=== PATIENT | male | born 1985 | race Caucasian/White ===

== ENCOUNTER → 2022-03-30 14:47 | Outpatient (CLI) | payer OTHER, SELFPAY | PROVIDERS: PCP Family Medicine; Visit Provider Nurse Practitioner | DX: R06.00 Dyspnea, unspecified (principal); R42 Dizziness and giddiness; R55 Syncope and collapse; I34.0 Nonrheumatic mitral (valve) insufficiency; I49.3 Ventricular premature depolarization; Z98.890 Other specified postprocedural states | CPT/HCPCS: 93270 ==

== ENCOUNTER 2022-04-02 15:05 | Emergency (ER) | payer OTHER, SELFPAY ==
[2022-04-02 15:10] VITALS: BP 130/78; PULSE 71; RESP 18; TEMP 36.8; O2SAT 98; BMI 25.7
[2022-04-02 15:20] VITALS: BP 130/78; PULSE 71; RESP 18; TEMP 36.8; O2SAT 98; BMI 25.7
--- NOTE | 2022-04-02 15:48 | HMH.EDUTC ---
[facility] [place] Impression: Low back pain Qualifiers: Chronicity: unspecified Back pain laterality: midline Sciatica presence: without sciatica Qualified Code(s): M54.50 - Low back pain, unspecified Disposition: Home, Self-Care Condition on Discharge: Good Instructions: Low Back Pain, DI for Low Back Pain, Cyclobenzaprine Additional Instructions: *Naproxen jeromy 12 hours with meal as needed for pain/inflammation *Remember you had a Toradol shot in the clinic today, which is similar to Naproxen so do not take for the next 8-10 hours *Not additional anti-inflammatory like Ibuprofen motrin, aleve, advil with the above amount of Naproxen. You can still take Tylenol every 4 hours as needed if you need something else for pain *Ice 20 minutes every 2 hours for the first 48 hours after the initial injury followed by moist heat every 20 minutes 3-4 times a day to affected area *Muscle relaxer every 8 hours as needed for muscle spasms but remember, it WILL cause drowsiness You cannot take it and drive, operate machinery or care for small children. *Keep this area active, no movement leads to more stiffness, However take it easy and avoid heavy lifting pushing or pulling *Follow up with you family doctor if no improvement for further treatment Prescriptions: Cyclobenzaprine HCl [Flexeril 10mg tablet] 10 mg PO TID PRN 30 Days #90 tab PRN Reason: Muscle Spasm Transmission Status: Pending to Clinic Pharmacy [facility] Referrals: Kashif Melton MD [Primary Care Provider] - As needed Time of Disposition: 16:17 Medical Decision Making - [place] Inquiry Pt receiving controlled substance: No [place] was queried for this patient: No Vital Signs: 04/02/22 15:10 04/02/22 15:20 Temperature 98.2 F 98.2 F Temperature Source Oral Oral Pulse Rate [Right Brachial] 71 71 Respiratory Rate 18 18 Blood Pressure [Right Arm] 130/78 130/78 Blood Pressure Mean [Right Arm] 95 95 Blood Pressure Source [Right Arm] Automatic Cuff Automatic Cuff Blood Pressure Position [Right Arm] Sitting Sitting 02 Sat by Pulse Oximetry 98 98 Oxygen Delivery Method Room Air Room Air Medical Decision Narrative: Medications discussed with pharmacy [facility] [place] - General Stated complaint: Back Spasms Time Seen by Provider: 04/02/22 15:48 Mode of Arrival: Ambulatory Source of Information: Patient, Spouse Limitations: No Limitations Description of Symptoms (Recalled from Triage Doc. 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 HEENT Symptoms (Recalled from RN notes): No Resp Symptoms (Recalled from RN notes): No Skin Symptoms (Recalled from RN notes): No MS Symptoms (Recalled from RN notes): Yes Functional Status (Recalled from RN notes): wnl - History of Present Illness Provider Complaint: Patient states he has had back problems in the past States that he was bending over to flush the toilet and felt something in his back spasm up States that he has been having spasms in his lower back ever since States that he tried a tens unit but it made it worse States that he hasnt been able to bend due to the spasms Denies falling States that he is suppose to take Naproxen but hasnt taken it today Denies loss of control of bowel or bladder - Related Data Home Medications Medication Instructions Recorded Confirmed Lactobacillus cap PO 03/30/22 03/30/22 no.51-Bifidobacterium no.4 50 billion cell capsule ascorbic acid 30 mg-zinc 1.1 tab PO 03/30/22 03/30/22 mg-elderberry 25 mg chewable tablet aspirin 81 mg tablet,delayed 81 mg PO DAILY 03/30/22 03/30/22 release cetirizine 10 mg tablet 10 mg PO DAILY PRN 03/30/22 03/30/22 flecainide 100 mg tablet 100 mg PO ONCE tab 03/30/22 03/30/22 guaifenesin 1,200 mg tablet, 1,200 mg PO BID 03/30/22 03/30/22 extended release 12 hr lansoprazole 30 mg capsule,delayed 30 mg PO DAILY cap 03/30/22 03/30/22 release metoprolol succinate 50 mg 50 mg PO BID tab 0
[2022-04-02 16:02] VITALS: BP 130/78; PULSE 71; RESP 18; TEMP 36.8; O2SAT 98
== END 2022-04-02 16:16 | disposition home or self-care (01) ==
PROVIDERS: Emergency Provider Nurse Practitioner; PCP Family Medicine
DX: M54.50 Low back pain, unspecified (principal)
CPT/HCPCS: 96372; 99212; G0463

== ENCOUNTER → 2022-04-06 06:17 | Outpatient (CLI) | payer OTHER, SELFPAY ==
--- NOTE | 2022-04-06 | CA_ITS ---
APPROVED REPORT Exam: Exercise Treadmill Technologist: Poppy Amezcua, Ht: 6 ft 1 in Wt: 242 lbs BSA: 2.33 m2 HR: 63 bpm BP: 142/97 mmHg Medical History Medications: Aspirin,,,,, Metoprolol,,,,, Flecainide,,,,, Naproxen,,,,, Lansoprazole,,,,, Zolpidem,,,,, MuCINEX,,,,, CetIRIZINE,,,,, ValACYCLOVer,,,,, NUrtec,,,,, ProDIOTICS,,,,, MultivitaminS,,,,, Stress Test Details Test: Javon HR Resting HR: 67 bpm Max Heart Rate (APMHR): 182.073902 bpm Max HR Achieved: 156 bpm Target HR (85% APMHR): 154.134148 bpm % of APMHR: 85.71 Recovery HR: 98 bpm BP Resting BP: 142/97 mmHg Max BP: 193/109 mmHg Recovery BP: 145.0/95.0 mmHg ECG Resting ECG: NSR, slow R wave progression Clinical Exercise duration: 12:00 min Highest Stage Achieved: IV Exercise capacity: 12.8 METs Stress ECG Conclusion Exercised 12:00 on Javon protocol, completing 4 stages. Max HR: 156 % of PM: 86% Max BP: 193/109 METs: 12.8 Test stopped due to: SOA, Fatigue Symptoms: Dyspnea, No CP. Arrhythmias/Ectopy: Occ isolated PVCs. ST-T Changes: Normal ST response to exercise. Conclusion: Normal GXT. Myoview images reported separately. Test Summary REST . . . . . . . Sitting REST 05:01 0.0 0.0 67 . 142/ 97 . . Stage 1 01:00 10.0 1.7 72 . . . . Stage 1 02:00 10.0 1.7 80 . . . . Stage 1 03:00 10.0 1.7 80 . . . . Stage 2 01:00 12.0 2.5 85 . . . . Stage 2 02:00 12.0 2.5 89 . . . . Stage 2 03:00 12.0 2.5 91 . . . . Stage 3 01:00 14.0 3.4 101 . 130/ 76 . . Stage 3 02:00 14.0 3.4 106 . 130/ 76 . . Stage 3 03:00 14.0 3.4 110 . 140/ 80 . . Stage 4 01:00 16.0 4.2 123 . . . . Stage 4 02:00 16.0 4.2 139 . . . . Stage 4 03:00 16.0 4.2 154 . . . Stop exercise at 12:00 RECOVERY 01:00 0.0 0.0 141 . . . . RECOVERY 02:00 0.0 0.0 117 . 193/109 . . RECOVERY 03:00 0.0 0.0 109 . 193/109 . . RECOVERY 04:00 0.0 0.0 103 . 178/ 97 . . RECOVERY 05:00 0.0 0.0 99 . 145/ 95 . . RECOVERY 05:17 0.0 0.0 97 . 145/ 95 . . Electronically signed by : Fabrice Pedroza MD 04/06/2022 20:45:27
--- NOTE | 2022-04-06 06:27 | NM_ITS ---
APPROVED REPORT Exam: Nuclear Stress Test Indication: palpitations..fatigue Patient Location: Outpatient Stress Tech: Poppy Amezcua MT Tech:Rosalba Montes De OcaLAKEISHA RT(R)(N) Ht: 6 ft 1 in Wt: 237 lbs HR: 67 bpm BP: 142/97 mmHg BSA: 2.31 m2 TID: 0.81 BMI: 31.2 History: palpitations..fatigue Procedure: Patient exercised on Javon protocol 12 minutes and sec, resting heart rate 67 bpm, resting blood pressure 142/97 mmHg, with exercise maximum heart rate achived was 156 bpm which is 86 % of the maximum predicted heart rate and blood pressure was 193/109 mmHg. Patient denied any complaint of chest pain. Patient has good exercise capacity, achieved 12.8 METs of workload on treadmill, the blood pressure response to exercise was Adequate. Electrocardiogram Electrocardiogram shows sinus rhythm, with exercise there is less than 1.[address] segment depression noted from the baseline EKG. The EKG portion of the exercise Myoview is negative for ischemia. Cardiac Stress and Resting SPECT Images: Cardiac Stress and Resting SPECT images were obtained using technetium 99m Myoview 30.6 mCi stress and 10.25 mCi at rest. Gated SPECT analysis of segmental wall motion and calculation of the ejection fraction also done. Cardiac stress and rest SPECT images show uniform myocardial activity without segmental perfusion abnormality, computer derived ejection fraction is 60% with no regional wall motion abnormality, right ventricle is normal size and contractility. Conclusion: 1. The EKG portion of the exercise Myoview is negative for ischemia. Patient has adequate exercise capacity achieved 12.8 METs of workload on treadmill, the blood pressure response to exercise was adequate. 2. No scintigraphic evidence of reversible ischemia seen, compared to ejection fraction is 60% with no regional wall motion abnormality, right ventricle is normal size and contractility. 3. Normal exercise Myoview study. Electronically signed by : Fabrice Pedroza MD 04/06/2022 20:48:30
--- NOTE | 2022-04-06 07:05 | CA_ITS ---
APPROVED REPORT EXAM: Comprehensive 2D, Doppler, and color-flow Echocardiogram Air Traffic Control Supervisor: Glenys Chavez RT(R) Ht: 6 ft 1 in Wt: 242lbs BSA: 2.33 BP: 113/82 mmHg Indications: fatigue, HTN, SOB, dizziness, MV repair 11/2019, PVC's, CHF, GERD, hx of migraines post MV surgery. 2D Dimensions LVOT 2.28 cm (M/F) 1.5-2.5 LA Volume 40.60 mL LA Volume Index 17.42 mL/m2 (M/F) 16-34 M-Mode Dimensions RVDd 2.46 cm (0.9-2.6) LA Diam 4.17 cm (1.9-4.0) LVDd 5.40 cm (3.5-5.7) Ao Diam 2.94 cm (2.0-3.7) LVDs 4.21 cm (3.5-5.7) IVSd 0.93 cm (0.6-1.1) PWd 0.93 cm (0.6-1.1) EF (Teich) 44.10% FS 22.00% EDV (Teich) 141.30 mL TAPSE 2.06 (<1.7) ESV (Teich) 79.00 mL LV Diastology E Decel Time 177.00 (160-240 msec) E/A Ratio 1.1 MED E' 10.80 (< 7 cm/sec) E'/MED E' Ratio 10.23 (>14) LAT E' 9.20 (<10 cm/sec) E/LAT E' Ratio 12.01 (>14) Aortic Valve AO VTI 62.50 (18-25 cm) Mitral Valve MV E Max Monty. 110.00 (40-130 cm/s) MV A Velocity 97.00 (40-130 cm/s) E/A Ratio 1.14 MV Decel. Time 177.00 (160-240 ms) MV PHT 52.00 ms Left Ventricle Left atrium is normal size, left ventricle is normal size, there is no concentric left ventricular hypertrophy, estimated ejection fraction 55% with no regional wall motion abnormality. Right Ventricle Right atrium and right ventricle are normal size and contractility. Aortic Valve Aortic valve is grossly normal, there is no aortic stenosis or aortic insufficiency. Mitral Valve Mitral valve has mitral annular ring, the mitral inflow pattern is not suggestive of significant mitral inflow obstruction, there is no mitral regurgitation. Tricuspid Valve Tricuspid valve grossly normal, there is trace tricuspid regurgitation, tricuspid regurgitation jet velocity is inadequate for calculation of the right ventricular systolic pressure. Pulmonic Valve Pulmonic valve is poorly visualized. Great Vessels Aortic root is normal size. Inferior vena cava normal size with normal inspiratory collapse. Pericardium No significant pericardial effusion noted. Conclusion 1. Normal left ventricular size, preserved left ventricular systolic function, estimated ejection fraction 55% with no regional wall motion abnormality, diastolic parameters are inconclusive. 2. Status post mitral valve repair without significant mitral inflow obstruction or mitral regurgitation. 3. No significant pericardial effusion. 4. Inferior vena cava normal size with normal inspiratory collapse. Electronically signed by : Fabrice Pedroza MD 04/06/2022 21:10:26
[2022-04-06 10:11] LABS: Basophils # 0.1 K/mm3 (0-0.2); Basophils % 1.8 % (0.1-2.0); Eosinophils # 0.1 K/mm3 (0.0-0.4); Eosinophils % 1.6 % (0.1-12.0); Hematocrit 45.7 % (42.0-52.0); Hemoglobin 15.5 g/dL (14.1-18.0); Lymphocytes # 1.4 K/mm3 (0.7-4.5); Lymphocytes % 25.9 % (10-50); Mean Corpuscular Hemoglobin 31.1 pg (27.0-31.2); Mean Corpuscular Volume 91.5 fl (80-94); Mean Platelet Volume 7.7 fl (7.4-10.4); Monocytes # 0.4 K/mm3 (0.1-1.0); Monocytes % 7.8 % (1.7-9.3); Neutrophils # 3.3 K/mm3 (1.8-7.8); Neutrophils % 62.9 % (37.0-80.0); Platelet Count 260 K/mm3 (142-424); Red Cell Distribution Width 13.3 % (11.5-17.5); White Blood Count 5.2 K/mm3 (4.8-10.8)
[2022-04-06 10:36] LABS: Alanine Aminotransferase 28 U/L (12-78); Alkaline Phosphatase 53 U/L (38-126); Anion Gap 11.6 mEq/L (5-15); Aspartate Amino Transferase 29 U/L (17-59); Bilirubin,Indirect 0.2 mg/dL (0.0-0.9); Bilirubin,Total 0.2 mg/dl (0.2-1.3); Bilirubin,Unconjugated 0.6 mg/dL (0.0-1.1); Blood Urea Nitrogen 16 mg/dl (9-20); Calcium 9.7 mg/dl (8.4-10.2); Carbon Dioxide 30 mmol/L (22.0-30.0); Chloride 100 mmol/L (98-107); Chol/HDL Ratio 4.9 (1-3.5); Cholesterol 188 mg/dl (140-200); Estimated Glomerular Filt Rate 84 ml/min (>60); GFR (African American) 101 ML/MIN (>60); Glucose 94 mg/dl (74-100); HDL Cholesterol 38 mg/dl (40-60); Magnesium 1.6 mg/dl (1.6-2.3); Potassium 4.6 mmoL/L (3.5-5.1); Sodium 137 mmol/L (136-145); Total Protein,Serum 6.7 g/dl (6.3-8.2); Triglycerides 115 mg/dl (30-150); VLDL Cholesterol 23 mg/dL (0-40)
[2022-04-06 10:47] LABS: Direct LDL Cholesterol 127.01 mg/dL (100-129)
[2022-04-06 10:52] LABS: Free T4 (Free Thyroxine) 0.97 ng/dl (0.78-2.19)
[2022-04-06 11:07] LABS: Thyroid Stimulating Hormone 2.61 uIU/mL (0.465-4.68)
== END ==
PROVIDERS: PCP Family Medicine; Visit Provider Nurse Practitioner
DX: R06.00 Dyspnea, unspecified (principal); R42 Dizziness and giddiness; I34.0 Nonrheumatic mitral (valve) insufficiency; I49.3 Ventricular premature depolarization; R55 Syncope and collapse; Z98.890 Other specified postprocedural states; M54.50 Low back pain, unspecified
CPT/HCPCS: 36415; 78452; 80048; 80061; 80076; 83735; 84439; 84443; 85025; 93017; 93306; A9502

== ENCOUNTER → 2022-09-13 13:32 | Outpatient (CLI) | payer OTHER, SELFPAY | PROVIDERS: PCP Family Medicine; Visit Provider Family Medicine | DX: G47.33 Obstructive sleep apnea (adult) (pediatric) (principal); R06.83 Snoring; I10 Essential (primary) hypertension; E66.9 Obesity, unspecified; Z68.31 Body mass index [BMI] 31.0-31.9, adult | CPT/HCPCS: 95806 ==

== ENCOUNTER → 2023-07-06 14:54 | Outpatient (CLI) | payer OTHER, SELFPAY | LOC: SL 14:55 | PROVIDERS: PCP Family Medicine; Visit Provider Family Medicine | DX: G47.33 Obstructive sleep apnea (adult) (pediatric) (principal); R06.83 Snoring | CPT/HCPCS: 95806 ==

== ENCOUNTER → 2023-07-20 08:48 | Outpatient (CLI) | payer OTHER, SELFPAY ==
--- NOTE | 2023-07-20 08:51 | CA_ITS ---
APPROVED REPORT EXAM: Comprehensive 2D, Doppler, and color-flow Echocardiogram Public Speaking Teacher: Glenys Chavez RT(R) Ht: 6 ft 2 in Wt: 246lbs BSA: 2.37 BP: 130/80 mmHg Indications: SOA, CP, abn EKG, hx of MV repair(ring), ex smoker, palpitations, HTN. 2D Dimensions LVOT 2.46 cm (M/F) 1.5-2.5 LA Volume 49.40 mL LA Volume Index 20.76 mL/m2 (M/F) 16-34 M-Mode Dimensions RVDd 3.27 cm (0.9-2.6) LA Diam 3.66 cm (1.9-4.0) LVDd 5.34 cm (3.5-5.7) Ao Diam 3.41 cm (2.0-3.7) LVDs 3.99 cm (3.5-5.7) IVSd 1.06 cm (0.6-1.1) PWd 0.89 cm (0.6-1.1) EF (Teich) 49.50% FS 25.30% EDV (Teich) 137.70 mL ESV (Teich) 69.60 mL LV Diastology E Decel Time 237.00 (160-240 msec) E/A Ratio 1.3 MED E' 9.20 (< 7 cm/sec) E'/MED E' Ratio 12.10 (>14) LAT E' 10.20 (<10 cm/sec) E/LAT E' Ratio 10.91 (>14) Aortic Valve AO VTI 40.28 (18-25 cm) Mitral Valve MV E Max Monty. 111.00 (40-130 cm/s) MV A Velocity 87.00 (40-130 cm/s) E/A Ratio 1.28 MV Decel. Time 237.00 (160-240 ms) MV PHT 69.00 ms Tricuspid Valve TR P. Velocity 194.00 cm/s RAP Estimate 10.00 mmHg RVSP 25.00 mmHg Left Ventricle The left ventricle is normal size. The left ventricular systolic function is normal. The left ventricular ejection fraction is within the normal range. There is normal left ventricular wall thickness. There is normal LV segmental wall motion. The left ventricular diastolic function is normal. LVEF is 55%. Right Ventricle Right ventricle is mild to moderately dilated. The right ventricular systolic function is normal. Atria The left atrium size is normal. The right atrium size is normal. There is no Doppler evidence of interatrial shunt. Aortic Valve The aortic valve opens well. There is no aortic valvular stenosis. No aortic regurgitation is present. Mitral Valve s/p MV ring. The mitral valve leaflets are not well visualized, but grossly appear to have normal mobility. No evidence of mitral valve stenosis. Mean MV gradient is 2 mmHg (HR 70 bpm). Mild mitral regurgitation. The MR jet is eccentric and is anteriorly directed. Tricuspid Valve The tricuspid valve leaflets are thin and pliable. Mild tricuspid regurgitation. RVSP is 15-20 mmHg. Pulmonic Valve The pulmonary valve is normal in structure. Trace pulmonic regurgitation. Great Vessels The aortic root is normal in size. The ascending aorta is mildly dilated (4.0 cm). IVC is normal in size and collapses >50% with inspiration. Pericardium There is no pericardial effusion. Other Information Study Quality: Fair Conclusion Normal biventricular systolic function. Mild to moderate RV dilation. s/p MV ring. Mild MR. No MS. Mildly dilated ascending aorta 4.0 cm. Further characterization of the RV dilation in the setting of history of palpitations is recommended with cardiac MRI (ARVC protocol). Electronically signed by : Carolynn Mancia, 07/25/2023 10:02:18
== END ==
PROVIDERS: PCP Family Medicine; Visit Provider Nurse Practitioner Family
DX: I49.3 Ventricular premature depolarization (principal); R00.2 Palpitations; R94.31 Abnormal electrocardiogram [ECG] [EKG]; Z98.890 Other specified postprocedural states
CPT/HCPCS: 93306

== ENCOUNTER → 2023-08-10 13:15 | Outpatient (CLI) | payer OTHER, SELFPAY ==
--- NOTE | 2023-08-10 13:15 | CT_ITS ---
FINAL REPORT CLINICAL HISTORY: dilated aorta FINDINGS: Thin section axial CT images of the chest were obtained with contrast. 3D reformatted images were also obtained. This study was performed with techniques to keep radiation doses as low as reasonably achievable (ALARA). Individualized dose reduction techniques using automated exposure control or adjustment of mA and/or kV according to the patient's size were employed. There is no evidence of pulmonary embolism. There is ectasia of the ascending aorta measuring 42 mm. There is no evidence of dissection. There is no evidence of mediastinal or hilar mass or adenopathy. Note is made of mild scarring. There is a calcified granuloma on the left. There is a 5 mm anterior right upper lobe nodule seen on image 28. IMPRESSION: No evidence of pulmonary embolism. Ectasia of the ascending aorta. Right upper lobe nodule measures 5 mm. Reviewed, Interpreted and Dictated by Dean Cheung III, MD Transcribed by Cherrie Rossi Authenticated and [facility]
[2023-08-10 13:53] LABS: Blood Urea Nitrogen 20 mg/dl (9-20); Estimated Glomerular Filt Rate 83 ml/min (>60); GFR (African American) 101 ML/MIN (>60)
== END ==
PROVIDERS: PCP Family Medicine; Visit Provider Nurse Practitioner Family
DX: R00.2 Palpitations (principal); I77.819 Aortic ectasia, unspecified site; I49.3 Ventricular premature depolarization; I10 Essential (primary) hypertension; Z98.890 Other specified postprocedural states
CPT/HCPCS: 36415; 71275; 82565; 84520; Q9967

== ENCOUNTER → 2023-09-20 19:50 | Outpatient (CLI) | payer OTHER, SELFPAY | PROVIDERS: PCP Family Medicine; Visit Provider Family Medicine | DX: G47.33 Obstructive sleep apnea (adult) (pediatric) (principal); R06.83 Snoring | CPT/HCPCS: 95810 ==

== ENCOUNTER → 2023-10-28 12:23 | Outpatient (CLI) | payer OTHER, SELFPAY ==
--- NOTE | 2023-10-28 07:27 | MR_ITS ---
FINAL REPORT CLINICAL HISTORY: . rule out aneurysm COMPARISON: None FINDINGS: Multiple projection images of the abdominal arterial vasculature were obtained without and with contrast. Raw data images were also reviewed. There is no evidence of abdominal aortic aneurysm or dissection. The abdominal aorta measures up to 25 mm. No abdominal mass or adenopathy identified. There is no abnormal fluid collection seen. IMPRESSION: No evidence of abdominal aortic aneurysm or dissection. Reviewed, Interpreted and Dictated by Dean Cheung III, MD Transcribed by Coco Sanders Authenticated and [facility]
--- NOTE | 2023-10-28 12:34 | MR_ITS ---
APPROVED REPORT Crime Investigator Special Agent: CLINICAL INDICATION RV dilation TECHNIQUE Image Acquisition: Cardiac magnetic resonance (CMR) was performed on Siemens Espree MRI 1.5T scanner. Software platform sequences were performed using the Siemens [employer] MR B19 platform. A set of three-plane, low-resolution, large [id number] localizers were initially acquired. Then axial, coronal, sagittal TrueFISP, as well as axial HASTE images, were obtained. These were followed by gated TrueFISP breathold cinematic sequences obtained in the short axis with 8 mm slices and 2 mm gaps, 2-chamber (vertical long axis), 3-chamber, 4-chamber (horizontal long axis). A bolus of contrast was injected intravenously with first-pass sequences obtained in the short axis and four-chamber planes. After approximately 10 minutes, a TI astronaut mission specialist sequence was performed to determine the optimal TI time. Using the optimized TI time, delayed contrast enhancement segmented inversion???recovery TurboFLASH sequences were obtained in the short axis, 2-chamber, 3-chamber, and 4-chamber projections. 2D-velocity phase mapping was performed. Functional parameters were calculated by offline analysis on an independent workstation ([employer] Platform, MotionDSP). Contrast: ProHance??? (Gadoteridol) FINDINGS MORPHOLOGY AND FUNCTION Left ventricle: The left ventricle is normal in size. The indexed left ventricular end-diastolic volume (LVEDVi) is 55 ml/m2 (reference range 55-105 ml/m2 in males, 56-96 ml/m2 in females). Normal left ventricular systolic function is present. There is normal left ventricular wall thickness. There are no regional wall motion abnormalities noted. LVEF is calculated at 62% (reference range 57-77%). Right ventricle: The right ventricle is normal in size. The indexed right ventricular end-diastolic volume (RVEDVi) is 85 ml/m2 (reference range 61-121 ml/m2 in males, 48-112 ml/m2 in females). Normal right ventricular systolic function is present. RVEF is calculated at 53% (reference range 52-72% in males, 51-71% in females). Atria: The left atrium cavity is small. The maximum indexed left atrial volume is 24 ml/m2 (reference range 26-52 ml/m2 in males, 27-53 ml/m2 in females). The right atrium is normal in size. The maximum indexed right atrial volume is 24 ml/m2 (reference range 18-90 ml/m2). Aorta: The diameter of the aortic annulus is normal, measuring 35 centimeter mm (coronal view reference range 21-30 mm in males, 19-27 mm in females). The diameter of the aortic sinus is normal, measuring 41 mm (coronal view reference range 25-42 mm in males, 24-36 mm in females). The diameter of the sinotubular junction is normal, measuring 34 mm (coronal view reference range 18-32 mm in males, 18-28 mm in females). The ascending aorta is mildly dilated, measuring 40 mm (normal < 37 mm). The diameter of the descending thoracic aorta is normal. Main pulmonary artery: The main pulmonary artery diameter is normal. Pericardium: The pericardial thickness is normal. The pericardial thickness measures 1.4 cm (normal < 4.0 cm). There is no pericardial effusion. VALVES There is mild prolapse of the posterior leaflet of the mitral valve leaflet. The remaining valves have normalr morphologies in the visualized sequences. There is no significant valvular stenosis or regurgitation of the mitral, aortic, tricuspid, or pulmonic valve noted visually. Systolic anterior motion of the mitral valve is not visualized. TISSUE CHARACTERIZATION Resting Perfusion: Normal myocardial blood flow at rest. No evidence of resting hypoperfusion. Myocardial Fibrosis and/or edema: Normal gadolinium kinetics are present. No evidence of late gadolinium enhancement is noted, consistent with absence of myocardia
--- NOTE | 2023-10-28 12:37 | MR_ITS ---
FINAL REPORT CLINICAL HISTORY: .RULE OUT ANEURYSM COMPARISON: None FINDINGS: Multiple projection images of the chest arterial vasculature were obtained without and with contrast. The raw data images were also reviewed. There is ectasia of the ascending aorta measuring up to 42 mm. The descending thoracic aorta is within normal limits measuring 28 mm. There is no evidence of thoracic aortic dissection. There is no mediastinal or hilar mass. No pulmonary mass identified. No chest wall abnormalities are seen. IMPRESSION: Ectasia of the ascending aorta. Reviewed, Interpreted and Dictated by Dean Cheung III, MD Transcribed by Coco Sanders Authenticated and [facility] [place]
[2023-10-28 12:58] LABS: Blood Urea Nitrogen 18 mg/dl (9-20); Estimated Glomerular Filt Rate 67 ml/min (>60); GFR (African American) 82 ML/MIN (>60)
== END ==
PROVIDERS: PCP Family Medicine; Visit Provider Physician Assistant
DX: I49.3 Ventricular premature depolarization; I77.819 Aortic ectasia, unspecified site; R00.2 Palpitations; R94.31 Abnormal electrocardiogram [ECG] [EKG]; K21.9 Gastro-esophageal reflux disease without esophagitis; G47.33 Obstructive sleep apnea (adult) (pediatric); Z98.890 Other specified postprocedural states; Z87.891 Personal history of nicotine dependence; I11.9 Hypertensive heart disease without heart failure
CPT/HCPCS: 36415; 71555; 74185; 75561; 82565; 84520; A9576

== ENCOUNTER 2023-11-28 14:30 | Outpatient (CLI) | payer OTHER, SELFPAY | END 2023-11-28 23:59 | LOC: RT 14:31 | PROVIDERS: PCP Family Medicine; Visit Provider Internal Medicine | DX: I44.1 Atrioventricular block, second degree (principal); I49.3 Ventricular premature depolarization; R00.2 Palpitations | CPT/HCPCS: 93270 ==

== ENCOUNTER 2023-12-01 10:57 | Outpatient (CLI) | payer OTHER, SELFPAY ==
--- NOTE | 2023-12-01 10:57 | CT_ITS ---
FINAL REPORT CLINICAL HISTORY: Sinusitis COMPARISON: None FINDINGS: The paranasal sinuses are well aerated. There is no fracture. There are no air-fluid levels. No significant mucoperiosteal thickening is identified. The ostiomeatal units are patent. There is mild deviation of the nasal septum to the left. IMPRESSION: Mild deviation of the nasal septum to the left, otherwise unremarkable. Reviewed, Interpreted and Dictated by Sandor Davis MD Transcribed by Ailyn King Authenticated and [facility]
== END 2023-12-01 23:59 ==
LOC: RAD 10:57
PROVIDERS: PCP Family Medicine; Visit Provider Nurse Practitioner
DX: J32.9 Chronic sinusitis, unspecified (principal); Z87.891 Personal history of nicotine dependence
CPT/HCPCS: 70486

== ENCOUNTER 2023-12-30 07:46 | Outpatient (CLI) | payer OTHER, SELFPAY ==
[2023-12-30 08:09] LABS: Basophils % 0.6 % (0.1-2.0); Eosinophils # 0.1 K/mm3 (0.0-0.4); Eosinophils % 2.3 % (0.1-12.0); Hematocrit 48.8 % (42.0-52.0); Hemoglobin 16.4 g/dL (14.1-18.0); Lymphocytes # 2.2 K/mm3 (0.7-4.5); Lymphocytes % 36.4 % (10-50); Mean Corpuscular HGB Conc 33.5 g/dL (31.8-35.4); Mean Corpuscular Hemoglobin 31.5 pg (27.0-31.2); Mean Platelet Volume 7.5 fl (7.4-10.4); Monocytes # 0.7 K/mm3 (0.1-1.0); Monocytes % 11.8 % (1.7-9.3); Platelet Count 265 K/mm3 (142-424); Red Cell Distribution Width 12.7 % (11.5-17.5)
[2023-12-30 08:15] LABS: Activated Partial Thrombo Time 27.6 seconds (22.8-30.6); INR 1.05 (0.9-1.1); Prothrombin Time 11.3 seconds (10.1-12.5)
[2023-12-30 08:57] LABS: Chloride 102 mmol/L (98-107); Sodium 138 mmol/L (136-145)
[2023-12-30 08:58] LABS: Potassium 4.4 mmoL/L (3.5-5.1)
[2023-12-30 09:00] LABS: Alanine Aminotransferase 44 U/L (12-78); Alkaline Phosphatase 72 U/L (38-126); Anion Gap 8.4 mEq/L (5-15); Aspartate Amino Transferase 33 U/L (17-59); Bilirubin,Direct 0.1 mg/dl (0.0-0.4); Bilirubin,Indirect 0.6 mg/dL (0.0-0.9); Bilirubin,Total 0.7 mg/dl (0.2-1.3); Bilirubin,Unconjugated 0.6 mg/dL (0.0-1.1); Blood Urea Nitrogen 19 mg/dl (9-20); Carbon Dioxide 32 mmol/L (22.0-30.0); Cholesterol 227 mg/dl (140-200); Estimated Glomerular Filt Rate 67 ml/min (>60); GFR (African American) 81 ML/MIN (>60); Triglycerides 173 mg/dl (30-150); VLDL Cholesterol 35 mg/dL (0-40)
[2023-12-30 09:01] LABS: Albumin Level 4.4 g/dl (3.5-5.0); Calcium 9.7 mg/dl (8.4-10.2); Chol/HDL Ratio 5.7 (1-3.5); Glucose 101 mg/dl (74-100); HDL Cholesterol 40 mg/dl (40-60); Total Protein,Serum 7.4 g/dl (6.3-8.2)
[2023-12-30 09:17] LABS: Direct LDL Cholesterol 124.51 mg/dL (100-129); Free T4 (Free Thyroxine) 0.94 ng/dl (0.78-2.19)
[2023-12-30 09:30] LABS: Thyroid Stimulating Hormone 1.33 uIU/mL (0.465-4.68)
[2024-01-03 14:24] LABS: Albumin, U 23.4 % (.); Alpha-1-Globulin, U 4.3 % (.); Alpha-2-Globulin, U 25.4 % (.); Beta Globulin, U 35.4 % (.); Gamma Globulin, U 11.5 % (.); M-Spike, % Not Observed % (Not Observed); Protein,Total,Urine 11.2 mg/dL (Not Estab.)
[2024-01-06 06:12] LABS: Free Testosterone (Direct) 8.8 pg/mL (6.8-21.5); Testosterone, Total, LC/MS 503.3 ng/dL (264.0-916.0)
[2024-01-06 09:25] LABS: Dopamine, Plasma < 30 pg/mL (0-48); Epinephrine, Plasma 24 pg/mL (0-62); Norepinephrine, Plasma 312 pg/mL (0-874)
[2024-01-06 10:13] LABS: Antinuclear Antibodies, IFA Positive
[2024-01-06 10:40] LABS: PDF: SCANNED IMAGE
== END 2023-12-30 23:59 ==
LOC: RT 07:47
PROVIDERS: Internal Medicine; PCP Family Medicine; Visit Provider Nurse Practitioner
DX: Z01.818 Encounter for other preprocedural examination (principal); R94.31 Abnormal electrocardiogram [ECG] [EKG]; G47.33 Obstructive sleep apnea (adult) (pediatric); I44.1 Atrioventricular block, second degree; I49.3 Ventricular premature depolarization; I51.7 Cardiomegaly; I77.819 Aortic ectasia, unspecified site; K21.9 Gastro-esophageal reflux disease without esophagitis; R00.2 Palpitations; Z98.890 Other specified postprocedural states
CPT/HCPCS: 36415; 80048; 80061; 80076; 82384; 82533; 83735; 84156; 84166; 84439; 84443; 85025; 85610; 85730; 86038

== ENCOUNTER 2024-01-10 07:31 | Day surgery (SDC) | payer OTHER, SELFPAY ==
[2024-01-09 09:48] VITALS: BMI 31.5
[2024-01-10] VITALS (10 sets, daily range): BP systolic 125–145; BP diastolic 80–102; PULSE 76–83; RESP 14–18; TEMP 36.3–36.8; O2SAT 90–98
[2024-01-10] MEDS: LACTATED RINGERS 1000ML 1,000 ML 25 ML IV (07:40)
--- NOTE | 2024-01-10 09:45 | P.PNANES_ITS ---
[facility] Disclaimer: The information contained in this section may have been updated after the patient was seen, as this information can be updated by other users. Medical History Abnormal electrocardiography Chronic sinusitis Deviated nasal septum Dilatation of aorta GERD (gastroesophageal reflux disease) High blood pressure Irregular heart beat Migraines Palpitations Right ventricular dilation Tinnitus Surgical History H/O adenoidectomy History of hernia repair History of mitral valve repair Family History Other Coronary artery disease Hypertension SUYAPA (obstructive sleep apnea) Social History Smoking Status: Former smoker alcohol intake: current substance use type: denies use current occupational status: other Travel in the last 8 weeks: Inside the [place] [facility] Anesthesia Checklist Patient Identification Patient Identification: Verbal (Name & ) Structural Data Admitted From: Home Planned Operative Procedure/s: nasal septo Consent for Planned Operative Procedure(s) Verified: Yes NPO Status Verified Time NPO: 00:00 Additional verifications Anesthesia Reactions: No Hx Blood Transfusions: No Airway Assessment Mallampati Score:: Class I C-Spine Mobility Assessed: Yes TMJ Mobility Assessed: Yes Dentition: Good Dentition Neurological Assessment Level of Consciousness: Awake, Alert and Appropriate Anesthesia Plan Anesthesia Risk discussed: Yes Anesthesia Plan: Verified ASA Class: III Anesthesia Type: General
[2024-01-10] MEDS: CEFAZOLIN SODIUM 2 GM in 0.9 % SODIUM CHLORIDE 100 ML IV (10:15)
[2024-01-10] MEDS: LIDOCAINE 1% W/EPI 1:100,000 20ML VIAL 20 ML (10:28)
[2024-01-10] MEDS: OXYMETAZOLINE NASAL SPRAY 0.05% 15ML 15 ML NS (10:37)
[2024-01-10] MEDS: 0.9 % SODIUM CHLORIDE 1000ML 1,000 ML 100 ML IV (12:20)
--- NOTE | 2024-01-10 12:38 | P.OP_ITS ---
Date of procedure: 01/10/24 Pre-op Diagnosis:: Deviated septum, inferior turbinate hypertrophy bilaterally, nasal valve stenosis Post-op Diagnosis:: Deviated septum, inferior turbinate hypertrophy, nasal valve stenosis Procedure performed:: Septoplasty, submucous resection of the inferior turbinates bilaterally, repair of nasal valve stenosis with cartilage candy spreader helper grafts bilaterally Surgeon:: Fabrizio Duron MD WIRE PHOTO OPERATOR NEWS:: Other Anesthesia: GETA Estimated blood loss (mL): 100 Operative findings:: Severely deviated septum anteriorly to the right and posteriorly to the left, turbinate hypertrophy bilaterally worse on the left, nasal valve stenosis bilaterally worse on the right Operative note:: The patient was brought to the operating room and after adequate general anesthesia 1% lidocaine with epinephrine was used to locally infiltrate the septum, inferior turbinates, columella, nasal tip, and nasal dorsum and then the nose was prepped and draped. Attention was then drawn to the columella. A columellar incision was made and extended laterally along the inferior border of the lower lateral cartilages and then skin and soft tissue elevated off the columella, nasal tip, and nasal dorsum as well as the medial and lateral crura. Dissection was first performed between the medial crura down to the caudal end of the cartilaginous septum. Mucoperichondrial flaps were elevated off the bony and cartilaginous septum bilaterally and then a cartilaginous spur anteriorly on the right was resected and then the cartilaginous septum mobilized and brought back over the midline maxillary crest. A severely deviated portion of the vomer and perpendicular plate of the ethmoid were resected as was a cartilaginous spur on the floor the nose on the right side and a large bony spur posteriorly on the left side. A portion of the bony septum was then fractured into a more straight configuration and placed back in between the mucoperichondrial flaps replacing the perpendicular plate of the ethmoid. The mucoperichondrial flaps were then returned to anatomic position and held in place with a 4-0 plain gut horizontal mattress suture. Harvested cartilage from the septum was then fashioned and the candy spreader helper grafts with the right being thicker than the left. The candy spreader helper grafts were then interposed between the medial border of the upper lateral cartilage and the dorsal edge of the cartilaginous septum and a submucosal pocket and this was done bilaterally. The candy spreader helper grafts were sutured in place with 6-0 Prolene horizontal mattress sutures. The skin and soft tissue were then redraped over the nasal skeleton and internal nasal incisions closed with 5-0 chromic and columellar incision closed with 6-0 nylon. Submucosal resection of the redundant soft tissue of the inferior turbinates was performed with a microdebrider and turbinate blade through an anterior stab incision and this was done bilaterally and then the bone of the inferior turbinate was lateralized with a Bovie elevator and this too was done bilaterally. Finney splints were placed on the septum and secured to the columella using 3-0 nylon Steri-Strips were placed externally to help the skin redraped over the nasal skeleton and the procedure concluded. All counts correct blood loss as estimated above patient was sent to recovery in stable condition. Condition: stable Disposition: PACU Complications:: No complications
--- NOTE | 2024-01-10 12:56 | P.PNANES_ITS ---
[facility] Anesthesia Record Part I Anesthesia Record I Intake, IV Amount: 1,500 Hydration: Adequate Estimated blood loss (mL): 50 Urine output (mL): 0 Blood Products used (#): none Blood Pressure: 127/102 SaO2: 93 Pulse Rate: 83 Airway Patency: Patent Respiratory Rate: 14 Temperature: 97.8 F Patient is:: Drowsy and Stable Stable to PACU at:: 12:58
[2024-01-10] MEDS: MORPHINE 2MG/ML SYRINGE 2 MG IV ×3 (13:10→13:24)
[2024-01-10] MEDS: LIDOCAINE 2% VISCOUS SOL 15ML UDC 15 ML PO (13:35)
[2024-01-10] MEDS: UBROGEPANT 50MG TABLET 50 MG PO (14:04)
--- NOTE | 2024-01-16 16:45 | P.PNANES_ITS ---
[facility] Anesthesia Record Part II Anesthesia Record Part II Discharge Time: 13:33 Destination: Surgical Day Care (OP Surgery) PACU nurse assessment reviewed?: Yes Patient Condition:: Good Anesthesia Complications:: None Swallowing reflex intact?: Yes Airway Patency: Patent Cyanosis?: No Blood Pressure: 131/100 SaO2: 98 Respiratory Rate: 16 Pulse Rate: 76 Temperature: 97.4 F Mental Status: Alert & Oriented Pain level:: 5 Nausea and/or vomitting:: None Intake, IV Amount: 0 Hydration: Adequate
[2024-01-16 16:46] VITALS: BP 131/100; PULSE 76; RESP 16; TEMP 36.3; O2SAT 98
== END 2024-01-10 14:25 | disposition home or self-care (01) ==
PROVIDERS: PCP Family Medicine; Visit Provider Otolaryngology
PROC: (CPT 30520; principal; 2024-01-10 09:15)
DX: J34.2 Deviated nasal septum (principal); J34.3 Hypertrophy of nasal turbinates; H04.553 Acquired stenosis of bilateral nasolacrimal duct
CPT/HCPCS: 30520; 30140; 30465; 96374; J3490; J2405

== ENCOUNTER 2024-01-27 09:58 | Outpatient (POV) | payer OTHER, SELFPAY ==
[2024-01-27 10:35] VITALS: BP 127/88; PULSE 80; RESP 18; O2SAT 97; BMI 32.3
--- NOTE | 2024-01-27 11:46 | EXP.PAIN.OV ---
HPI Data of Consult Patient: new to practice Consult date: 01/27/24 Requesting Physician: Denise Botello APRN Primary Care Provider: Kashif Melton MD Consult Narrative Reason for consult: TMJ joint dysfunction, tension headache, migraine, neck popping History of present illness: Mr. Monique is a 38 year old male who presents today as a new patient. He is a referral from Dr. Quigley's office. Today he rates his pain a 7 out of 10. 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 Patient does state this is an aching, popping and clicking sensation that is worse with chewing. Patient does also state that he has chronic tension headaches that has been going on for years as well. He states it comes up along his bilateral temples and will feel like a band going all around into the back of his head. Patient does state that this interferes with his ability to perform activities of daily living such as cooking and cleaning. He does state that he did go to the dentist who stated that he did grind his teeth and was possibly recommending even Botox injections. He states that he was trying to see whether or not if his insurance would cover it. Patient does state that he typically has 4-10 severe headaches per month and has been tried on several medications even before he moved from [place] to here. He states that those have included anything from naproxen, Nurtec, Aimovig, Ubrelvy. He does state that in the past sleep may play a role in his worsening headaches. Patient does use a AutoPap machine. Patient does also take medication to help with sleeping. Patient is interested in any help we may be able to provide. He does state that he really feels like it is hard to gauge what bothers him the most that he is unsure what starts first chicken or the egg . Patient states that he was in the before and has had a significant fall on 1 episode where he had gotten several injections and walked down the hallway and fell completely on his face hitting his chin causing severe injury. Patient does also state he has a history of heart related issues including mitral valve repair in 2019. Patient also states that he is unsure whether or not his deviated septum played a role in his worsening symptoms and that he has had surgery for that. Patient does state that he will occasionally have floaters in his eyes and that he has been to an eye doctor who thought it was more related to the headaches. He also states that he does frequently have to pop his neck due to feeling like it is out of place with pain. He denies any radiating symptoms into his upper extremities. Patient has been prescribed [place] 7.5 mg from an outside provider. His Celso has been reviewed and is appropriate. CC: Denise Botello APRN [facility] Disclaimer: The information contained in this section may have been updated after the patient was seen, as this information can be updated by other users. Medical History Deviated nasal septum Tinnitus Chronic sinusitis Right ventricular dilation Dilatation of aorta Palpitations GERD (gastroesophageal reflux disease) Migraines Irregular heart beat High blood pressure Abnormal electrocardiography Surgical History H/O adenoidectomy History of hernia repair History of mitral valve repair Family History Other Coronary artery disease Hypertension SUYAPA (obstructive sleep apnea) Social History (Updated 01/27/24 @ 10:36 by Obdulia Resendez RN) Smoking Status: Former smoker alcohol intake: current substance use type: denies use current occupational status: other Travel in the last 8 weeks: None Review of Systems Review of Systems Review of systems:: pertinent systems reviewed and negative unless documented below Review of systems (narrative): Review of Systems: General: No recent weight changes, no fever, no sleep disturbances Respiratory: No cough, no shortness of air, no recurring pulmonary infections Cardiovascular/peripheral vascular: No chest pain, no palpitations, no edema, no shortness of breath Gastrointestinal: No new onset incontinence, normal bowel movements reported Genitourinary: No new onset incontinence Musculoskeletal: TMJ dysfunction, headaches, migraines, neck pain/popping Psychiatric: [Normal mood/affect] Neurological: [Denies weakness in extremities], [denies balance issues] Meds Home Medications and Allergies Home Medications Medication Instructions Recorded Confirmed Type lansoprazole 30 mg capsule,delayed 30 mg PO DAILY 03/30/22 01/19/24 History release pseudoephedrine HCl 120 mg 120 mg PO Q12H PRN Cold Sores 09/07/23 03/14/24 History tablet,extended release (Sinus 12 Hour) naproxen 500 mg tablet 500 mg PO BID PRN Pain 09/20/23 01/19/24 History valacyclovir 1 gram tablet 2,000 mg PO Q12H PRN Cold Sores 09/20/23 01/19/24 History xhijblp-lypkajmzbpqrq-xgcupcxs 250 1 tab PO Q4-6H PRN ANDERSEN 12/20/23 01/19/24 History mg-250 mg-65 mg tablet (Excedrin Extra Strength) diltiazem HCl 240 mg 240 mg PO DAILY #30 caps 12/29/23 01/19/24 Rx capsule,extended release 24 hr cephalexin 500 mg capsule 500 mg PO TID #30 caps 01/10/24 01/19/24 Rx hydrocodone 7.5 mg-acetaminophen 1 tab PO Q6H PRN pain #20 tabs 01/10/24 01/19/24 Rx 325 mg tablet ondansetron 4 mg disintegrating 4 mg PO Q6H PRN nausea and 01/10/24 01/19/24 Rx tablet vomiting #20 tabs metoprolol succinate 25 mg 12.5 mg (1/2 x 25 mg) PO DAILY #30 01/19/24 01/19/24 Rx tablet,extended release 24 hr tabs (Toprol XL) New Prescriptions to Start Prescriptions: Allergies Allergy/AdvReac Type Severity Reaction Status Date / Time No Known Allergies Allergy Verified 01/19/24 13:23 Objective Vital signs: Pulse Resp BP Pulse Ox O2 Del Method 80 18 127/88 97 Room Air 01/27/24 10:35 01/27/24 10:35 01/27/24 10:35 01/27/24 10:35 01/27/24 10:35 Narrative: Physical Exam: General: Alert and oriented x3, no acute distress, pleasant and cooperative Lungs: Respirations even and unlabored, symmetrical chest expansion Eyes: PERRL Musculoskeletal: Flexion and extension of cervical [spine] within normal limits Neurological: Speech clear, no gross sensory deficit Assessment and Plan *Assessment and plan (1) Tension headache, chronic: Problem Comment: Bruxism, TMJ Status: Chronic Qualifiers: Intractability: not intractable Qualified Code(s): G44.229 - Chronic tension-type headache, not intractable Category: Medical Code(s): G44.229 - Chronic tension-type headache, not intractable (2) TMJ dysfunction: Status: Acute Category: Medical Code(s): M26.609 - Unspecified temporomandibular joint disorder, unspecified side (3) Migraines: Status: Chronic Qualifiers: Migraine type: unspecified Status migrainosus presence: without status migrainosus Intractability: intractable Qualified Code(s): G43.919 - Migraine, unspecified, intractable, without status migrainosus Category: Medical Code(s): G43.909 - Migraine, unspecified, not intractable, without status migrainosus Plan I have discussed with patient reducing his multiple issues that we can provide improvement with several options. I did review over the TMJ joint injections as well as occipital nerve block and Botox for migraines. Risk and benefits of these injections were explained to the patient. Patient did ask whether or not but the cost was and I have recommended that he follow-up with his insurance as well as the billing department here at [facility] regarding possible cost in his portion. I have discussed with the patient that his cervical spine may have some narrowing causing worsening symptoms as well. He denies any recent imaging. I will order x-ray and MRI without contrast of his cervical spine to follow. We will go ahead and get notes from Dr. Melton's office and review over Dr. Quigley's notes regarding his headache/migraine history with the plan to proceed forward with possible Botox injections in the future. Patient will return to clinic in 1 month for reevaluation of symptoms and plan of care. Patient has been instructed to contact the clinic with any concerns before the next appointment. Dr. Angel has reviewed this note and agrees with this plan of care. This note was dictated using voice recognition software and make contain errors or omissions.
== END 2024-01-27 23:59 ==
LOC: SC.PAIN 09:59
PROVIDERS: PCP Family Medicine; Visit Provider Nurse Practitioner Family
DX: G44.229 Chronic tension-type headache, not intractable (principal); M26.609 Unspecified temporomandibular joint disorder, unspecified side; G43.919 Migraine, unspecified, intractable, without status migrainosus
CPT/HCPCS: 99202; G0463

== ENCOUNTER 2024-01-27 11:06 | Outpatient (CLI) | payer OTHER, SELFPAY ==
--- NOTE | 2024-01-27 11:13 | XR_ITS ---
FINAL REPORT CLINICAL HISTORY: NECK PAIN,POPPING FINDINGS: CERVICAL SPINE Five views demonstrate no acute fracture. There are mild degenerative changes. There is a small disc osteophyte complex at C5-6. There is no significant neural foraminal narrowing. There is no malalignment. IMPRESSION: Degenerative changes as above. Reviewed, Interpreted and Dictated by Dean Cheung III, MD Transcribed by Cherrie Rossi Authenticated and . [facility]
== END 2024-01-27 23:59 ==
LOC: RAD 11:07
PROVIDERS: PCP Family Medicine; Visit Provider Nurse Practitioner Family
DX: M54.2 Cervicalgia (principal)
CPT/HCPCS: 72050

== ENCOUNTER 2024-01-30 10:02 | Outpatient (POV) | payer OTHER, SELFPAY | END 2024-01-30 23:59 | disposition home or self-care (01) | LOC: SC 10:02 | PROVIDERS: Visit Provider Specialist/Technologist | DX: Z00.00 Encounter for general adult medical examination without abnormal findings (principal) ==

== ENCOUNTER 2024-02-14 15:59 | Outpatient (CLI) | payer OTHER, SELFPAY ==
--- NOTE | 2024-02-14 16:03 | MR_ITS ---
FINAL REPORT CLINICAL HISTORY: NECK PAIN/ POPPING migraines FINDINGS: Multiplanar MR imaging of the cervical spine was performed without contrast. On the sagittal T2-weighted images, disc degeneration is seen throughout. There are endplate changes at C4-5 and C5-6. There is no evidence of fracture. The vertebral alignment is normal. The cervical spinal cord has an unremarkable appearance without evidence of mass, edema or syrinx. No significant canal stenosis is identified. The cervicomedullary junction is normal. C2-3: There is no significant canal stenosis or neural foraminal narrowing. C3-4: There is no significant canal stenosis or neural foraminal narrowing. C4-5: Annular disc bulge with small central disc protrusion. C5-6: Disc osteophyte complex with small central disc protrusion. C6-7: Annular disc bulge with mild left neuroforaminal narrowing. C7-T1: There is no significant canal stenosis or neural foraminal narrowing. IMPRESSION: Multilevel degenerative disc disease with small central disc protrusions at C4-5 and C5-6. Reviewed, Interpreted and Dictated by Dean Cheung III, MD Transcribed by Skylar Ragsdale Authenticated and [facility]
== END 2024-02-14 23:59 | disposition home or self-care (01) ==
LOC: RAD 15:59
PROVIDERS: PCP Family Medicine; Visit Provider Nurse Practitioner Family
DX: M54.2 Cervicalgia (principal)
CPT/HCPCS: 72141; 76376

== ENCOUNTER 2024-02-27 09:15 | Outpatient (POV) | payer OTHER, SELFPAY ==
[2024-02-27 09:24] VITALS: BP 118/81; PULSE 78; RESP 16; O2SAT 97; BMI 32.3
--- NOTE | 2024-02-27 09:54 | EXP.PAIN.SOA ---
[facility] Pain Management SOAP Note Subjective:: Patient is a pleasant 38-year-old male who presents today for MRI follow-up of his cervical spine. Today he rates his pain a 2 out of 10. Patient denies any new trauma or injury. He does state about 3 weeks ago he did have more spasms in his mid back. Patient does also have chronic pain in his low back. Patient states these have been going on for some time and denies any imaging. Patient does also state that his ocular migraines continue to be on a regular basis. His Celso has been reviewed and is appropriate. Review of Systems: General: No recent weight changes, no fever, no sleep disturbances Respiratory: No cough, no shortness of air, no recurring pulmonary infections Cardiovascular/peripheral vascular: No chest pain, no palpitations, no edema, no shortness of breath Gastrointestinal: No new onset incontinence, normal bowel movements reported Genitourinary: No new onset incontinence Musculoskeletal: Mid back pain, low back pain Psychiatric: [Normal mood/affect] Neurological: [Denies weakness in extremities], [denies balance issues] Objective:: Physical Exam: General: Alert and oriented x3, no acute distress, pleasant and cooperative Lungs: Respirations even and unlabored, symmetrical chest expansion Eyes: PERRL Musculoskeletal: Flexion and extension of lumbar [spine] somewhat guarded secondary to pain Neurological: Speech clear, no gross sensory deficit FINDINGS: Multiplanar MR imaging of the cervical spine was performed without contrast. On the sagittal T2-weighted images, disc degeneration is seen throughout. There are endplate changes at C4-5 and C5-6. There is no evidence of fracture. The vertebral alignment is normal. The cervical spinal cord has an unremarkable appearance without evidence of mass, edema or syrinx. No significant canal stenosis is identified. The cervicomedullary junction is normal. C2-3: There is no significant canal stenosis or neural foraminal narrowing. C3-4: There is no significant canal stenosis or neural foraminal narrowing. C4-5: Annular disc bulge with small central disc protrusion. C5-6: Disc osteophyte complex with small central disc protrusion. C6-7: Annular disc bulge with mild left neuroforaminal narrowing. C7-T1: There is no significant canal stenosis or neural foraminal narrowing. IMPRESSION: Multilevel degenerative disc disease with small central disc protrusions at C4-5 and C5-6. Reviewed, Interpreted and Dictated by Dean Cheung III, MD Transcribed by Skylar Ragsdale Authenticated and [facility] Assessment:: TMJ joint dysfunction, tension headache, migraine, degenerative disc disease of cervical spine, mid back pain, low back pain Plan:: I have still discussed with the patient that he still may benefit from TMJ joint injections, occipital nerve blocks or Botox injections for his ocular migraines. I have also discussed that he may benefit from additional injections such as cervical or lumbar epidurals however we will follow-up with this at future visits. Due to the patient's chronic pain also in his mid to low back I will order x-ray and MRI without contrast of his thoracic and lumbar spine. Patient has tried and failed conservative therapies including oral medication, heat and ice, topicals, physical therapy, at home stretching exercise for longer than 6 weeks. I will order the patient a compounded cream. Patient will return to clinic in 1 month for reevaluation of symptoms and plan of care. Patient has been instructed to contact the clinic with any concerns before the next appointment. Dr. Angel has reviewed this note and agrees with this plan of care. This note was dictated using voice recognition software and make contain errors or omissions. [facility] Disclaimer: The information contained in this section may have been updated after the patient was seen, as this information can be updated by other users. Medical History Deviated nasal septum Tinnitus Chronic sinusitis Right ventricular dilation Dilatation of aorta Palpitations GERD (gastroesophageal reflux disease) Migraines Irregular heart beat High blood pressure Abnormal electrocardiography Surgical History H/O nasal septoplasty H/O adenoidectomy History of hernia repair History of mitral valve repair Family History Other Coronary artery disease Hypertension SUYAPA (obstructive sleep apnea) Social History (Updated 02/01/24 @ 14:57 by AMY Haywood) Smoking Status: Never smoker alcohol intake: current substance use type: denies use current occupational status: other Travel in the last 8 weeks: None
== END 2024-02-27 23:59 ==
LOC: SC.PAIN 09:16
PROVIDERS: PCP Family Medicine; Visit Provider Nurse Practitioner Family
DX: M26.609 Unspecified temporomandibular joint disorder, unspecified side (principal); G44.209 Tension-type headache, unspecified, not intractable; G43.909 Migraine, unspecified, not intractable, without status migrainosus; M50.321 Other cervical disc degeneration at C4-C5 level; M50.322 Other cervical disc degeneration at C5-C6 level; M54.6 Pain in thoracic spine; M54.50 Low back pain, unspecified
CPT/HCPCS: 99212; G0463

== ENCOUNTER 2024-02-27 10:06 | Outpatient (CLI) | payer OTHER, SELFPAY ==
--- NOTE | 2024-02-27 10:09 | XR_ITS ---
FINAL REPORT CLINICAL HISTORY: back pain COMPARISON: None FINDINGS: LUMBAR SPINE: AP, lateral and oblique views of the lumbar spine were obtained. There is no prior exam for comparison. There is no acute fracture or malalignment. Vertebral body height is preserved. Disc space height is preserved. No acute paraspinal abnormality. IMPRESSION: Unremarkable lumbar spine series. THORACIC SPINE: AP and lateral views of the thoracic spine were obtained. There is no prior exam available for comparison purposes. There is no acute fracture or malalignment. Vertebral body height is preserved. Disc space height is preserved. No acute paraspinal abnormality is identified. IMPRESSION: Unremarkable thoracic spine series. Reviewed, Interpreted and Dictated by Sandor Davis MD Transcribed by Ailyn King Authenticated and . [facility]
== END 2024-02-27 23:59 | disposition home or self-care (01) ==
LOC: RAD 10:07
PROVIDERS: PCP Family Medicine; Visit Provider Nurse Practitioner Family
DX: M54.6 Pain in thoracic spine (principal); M54.50 Low back pain, unspecified
CPT/HCPCS: 72084

== ENCOUNTER 2024-03-13 07:33 | Outpatient (CLI) | payer OTHER, SELFPAY ==
--- NOTE | 2024-03-13 | MR_ITS ---
FINAL REPORT CLINICAL HISTORY: lower back pain FINDINGS: Multiplanar MR imaging of the lumbar spine was performed without contrast. On the sagittal T2-weighted images, disc degeneration is seen at multiple levels. The vertebral alignment is normal. There is no evidence of fracture. No bony mass is identified. The conus has an unremarkable appearance. L1-2: Unremarkable. L2-3: An annular bulge is present. There is no significant canal stenosis or neural foraminal narrowing. L3-4: An annular bulge is present. A small right foraminal disc protrusion is present. There is mild right neural foraminal narrowing. L4-5: An annular bulge is present. A central disc protrusion mildly indents the thecal sac. There is mild bilateral neural foraminal narrowing. L5-S1: An annular bulge is present. There is no significant canal stenosis or neural foraminal narrowing. IMPRESSION: Small right foraminal L3-4 disc protrusion with mild right neural foraminal narrowing. Small central L4-5 disc protrusion. Authenticated and [facility]
--- NOTE | 2024-03-13 07:36 | MR_ITS ---
FINAL REPORT CLINICAL HISTORY: MID BACK PAIN FINDINGS: Multiplanar MR imaging of the thoracic spine was performed without contrast. On the sagittal T2-weighted images, mild disc degeneration is noted at several levels. Small Schmorl's nodes are seen at several levels. There is no evidence of fracture. The vertebral alignment is normal. Several small hemangiomas are noted. The thoracic spinal cord has an unremarkable appearance without evidence of mass, edema or syrinx. There is no evidence of canal stenosis or cord compression. On the axial images, no focal disc protrusion is identified. Mild annular bulges are seen at several levels. There is no evidence of significant canal stenosis. No paraspinous soft tissue abnormality is seen. IMPRESSION: Mild annular bulges at several levels. No focal disc protrusion or significant central canal stenosis. Authenticated and [facility]
== END 2024-03-13 23:59 | disposition home or self-care (01) ==
LOC: RAD 07:34
PROVIDERS: PCP Family Medicine; Visit Provider Nurse Practitioner Family
DX: M54.6 Pain in thoracic spine (principal); M54.50 Low back pain, unspecified
CPT/HCPCS: 72146; 72148; 76376

== ENCOUNTER 2024-11-21 21:11 | Emergency (ER) | payer OTHER, SELFPAY ==
[2024-11-21 21:11] VITALS: BP 163/85; PULSE 99; RESP 26; TEMP 37.1; O2SAT 89; BMI 28.3
--- NOTE | 2024-11-21 21:14 | XR_ITS ---
PROCEDURE INFORMATION: Exam: XR Chest Exam date and time: 11/21/2024 9:25 PM Age: 38 years old Clinical indication: Other: Chest pain TECHNIQUE: Imaging protocol: Radiologic exam of the chest. Views: 1 view. COMPARISON: MRA THORAX/AORTA W/ OR W/O 10/28/2023 12:48 PM FINDINGS: Lungs: Granulomatous changes. No consolidation. Pleural spaces: Unremarkable. No pleural effusion. No pneumothorax. Heart/Mediastinum: Unremarkable. No cardiomegaly. Bones/joints: Unremarkable. IMPRESSION: No acute findings.
[2024-11-21 21:25] LABS: Basophils # 0.1 K/mm3 (0-0.2); Basophils % 0.4 % (0.1-2.0); Eosinophils # 0.2 K/mm3 (0.0-0.4); Eosinophils % 1.1 % (0.1-12.0); Hematocrit 45.2 % (42.0-52.0); Hemoglobin 15.6 g/dL (14.1-18.0); Lymphocytes # 4.9 K/mm3 (0.7-4.5); Lymphocytes % 34.9 % (10-50); Mean Corpuscular HGB Conc 34.5 g/dL (31.8-35.4); Mean Corpuscular Hemoglobin 30.2 pg (27.0-31.2); Mean Corpuscular Volume 87.4 fl (80-94); Mean Platelet Volume 9.2 fl (7.4-10.4); Monocytes # 1.1 K/mm3 (0.1-1.0); Monocytes % 7.8 % (1.7-9.3); Neutrophils # 7.8 K/mm3 (1.8-7.8); Neutrophils % 55.4 % (37.0-80.0); Platelet Count 383 K/mm3 (142-424); Red Blood Count 5.17 M/mm3 (4.60-6.20); Red Cell Distribution Width 12.4 % (11.5-17.5)
[2024-11-21 21:28] LABS: Albumin Level 4.8 g/dl (3.5-5.0); Chloride 105 mmol/L (98-107); Potassium 4.3 mmoL/L (3.5-5.1); Sodium 135 mmol/L (136-145)
[2024-11-21 21:31] VITALS: PULSE 95
[2024-11-21 21:31] LABS: Alanine Aminotransferase 36 U/L (12-78); Albumin/Globulin Ratio 1.7 (1.1-1.8); Alkaline Phosphatase 89 U/L (38-126); Anion Gap 16.3 mEq/L (5-15); Aspartate Amino Transferase 34 U/L (17-59); Bilirubin,Total 0.5 mg/dl (0.2-1.3); Blood Urea Nitrogen 29 mg/dl (9-20); Calcium 9.5 mg/dl (8.4-10.2); Carbon Dioxide 18 mmol/L (22.0-30.0); Creatinine Clearance Estimated 123 mL/min (50-200); Estimated Glomerular Filt Rate 74 ml/min (>60); GFR (African American) 90 ML/MIN (>60); Globulin 2.9 g/dL (1.3-3.2); Glucose 129 mg/dl (74-100); Total Protein,Serum 7.7 g/dl (6.3-8.2)
--- NOTE | 2024-11-21 21:31 | ECG_ITS ---
APPROVED REPORT Exam: Resting ECG HR:95 bpm ECG Measurements Heart Rate 95 AXES IL 181 P 60 QRSd 109 QRS -10 QT 347 T 65 QTc 399 Conclusion SINUS RHYTHM NORMAL ECG Electronically signed by : MICHAEL PABON, 11/22/2024 00:05:27
[2024-11-21 21:32] LABS: Magnesium 2.2 mg/dl (1.6-2.3)
[2024-11-21 21:34] LABS: Activated Partial Thrombo Time 21.8 seconds (22.5-28.5)
[2024-11-21] MEDS: LACTATED RINGERS 1000ML 1,000 ML 999 ML IV (21:38)
[2024-11-21 21:43] LABS: Troponin I < 0.01 ng/ml (0.00-0.034)
[2024-11-21 21:45] VITALS: BP 144/80; PULSE 92; RESP 18; O2SAT 100
[2024-11-21 21:48] LABS: D-Dimer 0.32 ug/mL (0.0-0.5)
[2024-11-21] MEDS: LORazepam 2MG/ML VIAL 0.5 MG IV (21:51)
[2024-11-21] MEDS: METOPROLOL TARTRATE 5MG/5ML VIAL 5 MG IV (21:51)
[2024-11-21 21:59] LABS: C-Reactive Protein 0.5 mg/L (0-4)
[2024-11-21 21:59] LABS: VBG Base Excess -2.4 mmol/L (-2.4-2.3); VBG Oxygen Saturation 75.3 % (50-70); VBG PCO2 41.3 mmol/L (35-51); VBG PH 7.36 mmol/L (7.31-7.41); VBG PO2 39.5 mmol/L (28-40); VBG Total CO2 24.2 mmol/L (23-27)
[2024-11-21 22:00] VITALS: BP 142/84; PULSE 82; RESP 16; O2SAT 100
[2024-11-21 22:01] LABS: Lactate Venous 4.2 mmol/L (0.4-2.0)
[2024-11-21 22:13] LABS: Adenovirus,PCR Not Detected (NotDetected); Bordetella Pertussis Not Detected (NotDetected); Chlamydophila Pneumoniae, PCR Not Detected (NotDetected); Coronavirus 19, PCR Not Detected (NotDetected); Coronavirus 229E Not Detected (NotDetected); Coronavirus NL63 Not Detected (NotDetected); Coronavirus OC43 Not Detected (NotDetected); Coronovirus HKU1,PCR Not Detected (NotDetected); Human Metapneumovirus Not Detected (NotDetected); Influenza A, PCR Not Detected (NotDetected); Influenza AH1, 2009 Not Detected (NotDetected); Influenza AH1, PCR Not Detected (NotDetected); Influenza AH3,PCR Not Detected (NotDetected); Influenza B, PCR Not Detected (NotDetected); Mycoplasma Pneumoniae, PCR Not Detected (NotDetected); Parainfluenza 1, PCR Not Detected (NotDetected); Parainfluenza 2, PCR Not Detected (NotDetected); Parainfluenza 3, PCR Not Detected (NotDetected); Parainfluenza 4, PCR Not Detected (NotDetected); Respiratory Syncytial Virus Not Detected (NotDetected); Rhinovirus/Enterovirus Not Detected (NotDetected)
[2024-11-21 22:18] LABS: NT Pro Brain Natriuretic Pep. 35.6 pg/mL (0-125)
[2024-11-21 22:36] LABS: T4 (Thyroxine) 8.4 ug/dl (5.53-11.0)
[2024-11-21 22:40] LABS: Erythrocyte Sedimentation Rate 1 mm/hr (0-15)
[2024-11-21 22:50] LABS: Thyroid Stimulating Hormone 4.08 uIU/mL (0.465-4.68)
--- NOTE | 2024-11-21 23:34 | ED_ITS ---
Discharge Plan Disposition Patient Disposition: Home, Self-Care Prescriptions Prescriptions: No Action prochlorperazine maleate 5 mg tablet 5 mg PO BID PRN valacyclovir 1 gram tablet 2,000 mg PO Q12H PRN (Reason: Cold Sores) Patient Comments: TAKE TWO TABLETS BY MOUTH TWICE DAILY NEEDED -- FINISH ALL MEDICINE -- metoprolol succinate 25 mg tablet extended release 24 hr 12.5 mg PO DAILY Ubrelvy 100 mg tablet 100 mg PO ONCE diltiazem HCl 180 mg capsule,extended release 24hr 180 mg PO DAILY Qty: 90 1RF Referrals Follow up/Referrals: Kashif Melton MD [Primary Care Provider] - See instructions Activity Restrictions/Add. Instructions Additional Instructions/Restrictions: You were evaluated in the ER and are believed to be appropriate for discharge at this time. Continue taking home medications as previously prescribed. Follow- up with Dr. Meza at 10:30 AM today 11/22/2024. Monitor for any new, worsening, or otherwise concerning symptoms and immediately return to the ER if these develop. Clinical Impressions Clinical Impression: H/O mitral valve repair, Palpitations, Chest pain Print Language Print Language: Nepali Discharge ED Provider: Denise Penaloza HPI <Denise Penaloza DO - Last Filed: 11/21/24 23:47> General Chief Complaint: Chest Pain Stated Complaint: chest pain Time Seen by Provider: 11/21/24 21:14 Mode of Arrival: Ambulatory Source of Information: Patient Limitations: No Limitations Description of Symptoms (Recalled from ER Triage Doc. by RN): PT C/O CP/SOA/PALPITATIONS. HX OF MITRAL VALVE REPAIR IN 2019. REPORTS APPLE WATCH READ AFIB AFTER SYMPTOMS STARTED. DENIES BLOOD THINNERS. History of Present Illness HPI narrative: This patient is a 38-year-old male who has a history of hypertension, mitral valve repair in 2019 for flail leaflet presenting to the emergency department for evaluation with concern for fluttering in his chest, palpitations, and shortness of breath that started just prior to arrival. He notes that his Apple Watch read A-fib after symptoms started, and his who is a physician listened to him and noted that he had an irregular sounding heart. He had been doing fine all day with nothing out of the ordinary. No recent illnesses or prodrome of symptoms. This hit him suddenly, causing him to go down onto the ground because he could tell something was not right. His states that she came upstairs and found him on the ground, very flushed and ill-appearing. She states that nothing like this has happened since his valve replacement in 2019. He does follow with cardiology and has had nonsustained V. tach run as well as second-degree AV block in the past noted on heart monitor. He is managed on metoprolol and diltiazem. He has not yet had his nighttime metoprolol, as he typically takes succinate right before bed. No fevers, chills, abdominal pain, vomiting, or other concerns. Related Data Home Medications ?Medication ?Instructions ?Recorded ?Confirmed valacyclovir 1 gram tablet 2,000 mg PO Q12H PRN Cold Sores 09/20/23 10/18/24 prochlorperazine maleate 5 mg 5 mg PO BID PRN 04/19/24 10/18/24 tablet metoprolol succinate 25 mg 12.5 mg PO DAILY 07/04/24 10/18/24 tablet,extended release 24 hr ubrogepant 100 mg tablet (Ubrelvy) 100 mg PO ONCE 10/18/24 10/18/24 Previous Rx's ?Medication ?Instructions ?Recorded diltiazem HCl 180 mg 180 mg PO DAILY #90 caps 10/18/24 capsule,extended release 24 hr Allergies Allergy/AdvReac Type Severity Reaction Status Date / Time No Known Allergies Allergy Verified 10/18/24 13:13 [facility] <Denise Penaloza DO - Last Filed: 11/21/24 23:47> [facility] Disclaimer: The information contained in this section may have been updated after the patient was seen, as this information can be updated by other users. Medical History Hypertrophy of nasal turbinates Deviated nasal septum Tinnitus Chronic sinusitis Right ventricular dilation Dilatation of aorta Palpitations GERD (gastroesophageal reflux disease) Migraines Irregular heart beat High blood pressure Abnormal electrocardiography Surgical History H/O nasal septoplasty H/O adenoidectomy History of hernia repair History of mitral valve repair Family History Other Coronary artery disease Hypertension SUYAPA (obstructive sleep apnea) Social History Smoking Status: Never smoker alcohol intake: current alcohol intake frequency: 0-2 drinks per day substance use type: denies use current occupational status: other Travel in the last 8 weeks: None Have you lived/traveled outside [place] in past 30 days?: No Contact w/someone who lives/traveled outside US past 30 days?: No Exposure to someone with infectious disease in past 14 days?: No Do you have a fever (greater than 100.4 F or 38 C)?: No Have you tested positive for COVID-19: No Exposed to someone with COVID-19 in past 14 days?: No Do you have a sore throat?: No Do you have a cough?: No Do you have any weakness?: No Do you have any diarrhea?: No Are you experiencing any unusual bleeding?: No Do you have any muscle aches/pain?: No Do you have any abdominal pain?: No Are you experiencing loss of taste or smell?: No Other Medical History Have you received the Flu Vaccine for this season: No Have you received the Pneumonia Vaccine: No <Denise Penaloza DO - Last Filed: 11/21/24 23:47> ROS Obtained: Yes All systems reviewed & no additional complaints except as documented Physical Exam <Denise Penaloza DO - Last Filed: 11/21/24 23:47> General General appearance: alert and anxious Comment: Anxious appearing, shivering Head Head exam: atraumatic and normocephalic Eye Eye exam: Present normal appearance, PERRL and EOMI ENT ENT exam: Present normal exam, normal oropharynx, mucous membranes moist and normal external ear exam Neck Neck exam: Present normal inspection, full ROM and trachea midline; Absent tenderness Chest Chest inspection: Present normal inspection and symmetric chest wall rise; Absent tenderness Respiratory Respiratory exam: Present normal lung sounds bilaterally; Absent respiratory distress, wheezes, stridor or accessory muscle use Cardiovascular Cardiovascular exam: Present tachycardia and irregular rhythm Abdominal Exam Abdominal exam: Present soft; Absent distention, tenderness, guarding or rebound Extremities Exam Extremities exam: Present normal inspection, full ROM and normal capillary refill; Absent tenderness or edema Back Exam Back exam: Present normal inspection and full ROM; Absent tenderness Neurological Exam Neurological exam: Present alert, oriented X3, CN II-XII intact and normal gait; Absent motor sensory deficit Psychiatric Psychiatric exam: Present anxious Skin Skin exam: Present warm, dry and pallor HEART Score <Denise Penaloza DO - Last Filed: 11/21/24 23:47> HEART Score HEART Score assessment performed?: Yes History (anamnesis): Moderately suspicious ECG: Non-specific disturbance Age: <45 years Risk factors: 1-2 risk factors Troponin: </= normal limit HEART Score: 3 <Karey Garcia MD - Last Filed: 11/22/24 00:57> HEART Score HEART Score: 3 Procedures <Denise Penaloza DO - Last Filed: 11/21/24 23:47> Limited Ultrasound Findings:: Limited cardiac ultrasound Indication: Presyncope, shortness of breath, palpitations Identified cardiac views: [-Cardiac parasternal long axis] [-Cardiac parasternal short axis] [-Cardiac apical four-chamber] [-Cardiac subxiphoid] Findings: [-Cardiac activity present -Gross wall motion normal -Pericardial effusion absent -Right heart strain absent] Impression: -From above Images were saved to permanent archive The study was technically adequate CPT: 45520 This study was performed by me, and I personally interpreted all images/videos. Based on my clinical judgement, these images were adequate and did not necessitate further imaging. Critical Care <Denise Penaloza DO - Last Filed: 11/21/24 23:47> Critical Care Time Critical Care Time: Yes Attestation: On 11/21/24, the high probability of a clinically significant, sudden or life threatening deterioration of the following system(s) required my full and direct attention, intervention and personal management. The time I documented below is in addition to time spent performing reported procedures but includes the following listed in this critical care notation. Total Time Total Critical Care Time: 30 Medical Decision Making <Denise Penaloza DO - Last Filed: 11/21/24 23:47> [place] Inquiry Pt receiving controlled substance: No Vital Signs Vital Signs: 11/21/24 21:11 11/21/24 21:31 11/21/24 21:45 Temperature 98.7 F Temperature Source Oral Pulse Rate 95 H 92 H Pulse Rate [Apical] 99 H Respiratory Rate 26 H 18 Blood Pressure 144/80 H Blood Pressure [Right Arm] 163/85 H Blood Pressure Mean [Right Arm] 111 02 Sat by Pulse Oximetry 89 L 100 Oxygen Delivery Method Room Air 11/21/24 22:00 Temperature Temperature Source Pulse Rate 82 Pulse Rate [Apical] Respiratory Rate 16 Blood Pressure 142/84 H Blood Pressure [Right Arm] Blood Pressure Mean [Right Arm] 02 Sat by Pulse Oximetry 100 Oxygen Delivery Method Lab Data Labs: Lab Results 11/21/24 00:00: Troponin I 0.03 11/21/24 20:08: Chlamy pneumoniae PCR Not detected, Adenovirus (PCR) Not detected, B. pertussis DNA (PCR) Not detected, Coronavirus OC43 (PCR) Not detected, Coronavirus HKU1 (PCR) Not detected, Coronavirus 229E (PCR) Not detected, SARS-CoV-2 (PCR) Not detected, Coronavirus NL63 (PCR) Not detected, Human Metapneumovir PCR Not detected, Influenza A (H1) PCR Not detected, Influ A (H1N1/09) PCR Not detected, Influenza A (H3) PCR Not detected, Influenza Type A (PCR) Not detected, Influenza Type B (PCR) Not detected, M. pneumoniae (PCR) Not detected, Parainfluenza 1 (PCR) Not detected, Parainfluenza 2 (PCR) Not detected, Parainfluenza 3 (PCR) Not detected, Parainfluenza 4 (PCR) Not detected, RSV (PCR) Not detected, Entero/Rhino (PCR) Not detected 11/21/24 21:10: WBC 14.0 H, RBC 5.17, Hgb 15.6, Hct 45.2, MCV 87.4, MCH 30.2, MCHC 34.5, RDW 12.4, Plt Count 383, MPV 9.2, Neut % (Auto) 55.4, Lymph % (Auto) 34.9, Falls % (Auto) 7.8, Eos % (Auto) 1.1, Baso % (Auto) 0.4, Neut # (Auto) 7.8, Lymph # (Auto) 4.9 H, Falls # (Auto) 1.1 H, Eos # (Auto) 0.2, Baso # (Auto) 0.1, ESR 1, PT 10.0, INR 0.90, APTT 21.8 L, D-Dimer 0.32, Sodium 135 L, Potassium 4.3, Chloride 105, Carbon Dioxide 18 L, Anion Gap 16.3 H, BUN 29 H, Creatinine 1.10, Estimated Creat Clear 123, Estimated GFR 74, Est GFR ( Amer) 90, G lucose 129 H, Calcium 9.5, Magnesium 2.2, Total Bilirubin 0.5, AST 34, ALT 36, Alkaline Phosphatase 89, Troponin I < 0.01, C-Reactive Protein 0.5, NT-Pro-B Natriuret Pep 35.6, Total Protein 7.7, Albumin 4.8, Globulin 2.9, Albumin/Globulin Ratio 1.7, TSH 4.08, Thyroxine (T4) 8.4 11/21/24 21:44: VBG pH 7.36, VBG pCO2 41.3, VBG pO2 39.5, VBG HCO3 23.0, VBG Total CO2 24.2, VBG O2 Saturation 75.3 H, VBG Base Excess -2.4, VBG Lactic Acid 4.2 H 11/21/24 21:10 11/21/24 21:10 Response Orders (Tests/Meds): ED MEDICATIONS Generic Name Dose Route Start Last Admin Trade Name Freq PRN Reason Stop Dose Admin Sodium Chloride 10 ml 11/21/24 21:41 Sodium Chloride 0.9% 10ml Vial IV 12/21/24 21:40 NEEDED PRN to Dilute Lorazepam inj Discontinued Medications Generic Name Dose Route Start Last Admin Trade Name Freq PRN Reason Stop Dose Admin Lactated Ringer's 1,000 mls @ 999 mls/hr 11/21/24 21:34 11/21/24 21:38 Lactated Ringer's 1000 Ml Bag IV 11/21/24 22:34 999 mls/hr .Q1H1M ONE Administration Lorazepam 0.5 mg 11/21/24 21:41 11/21/24 21:51 Lorazepam 2mg/Ml Vial IV 11/21/24 21:42 0.5 mg ONCE ONE Administration Metoprolol Tartrate 5 mg 11/21/24 21:42 11/21/24 21:51 Metoprolol Tartrate 5mg/5ml Vial IV 11/21/24 21:43 5 mg ONCE ONE Administration ORDERS Category Date Time Status CXR --portable [XR chest portable] Stat Exams 11/21/24 21:14 Completed POCUS Point of Care (ER Only) Stat Exams 11/21/24 21:14 Ordered BNP [NT Pro Brain Natriuretic Pep.] Stat Lab 11/21/24 21:10 Completed CRP [C-Reactive Protein] Stat Lab 11/21/24 21:10 Completed Complete Blood Count Auto Diff Stat Lab 11/21/24 21:10 Completed Comprehensive Metabolic Panel Stat Lab 11/21/24 21:10 Completed D-Dimer Stat Lab 11/21/24 21:10 Completed ESR [Erythrocyte Sedimentation Rate] Stat Lab 11/21/24 21:10 Completed Full Resp Panel w/COVID ([facility]) Routine Lab 11/21/24 20:08 Completed MAG [Magnesium] Stat Lab 11/21/24 21:10 Completed PT INR [Prothrombin Time INR] Stat Lab 11/21/24 21:10 Completed PTT [Activated Partial Thrombo Time] Stat Lab 11/21/24 21:10 Completed T4 (Thyroxine) Stat Lab 11/21/24 21:10 Completed TSH [Thyroid Stimulating Hormone] Stat Lab 11/21/24 21:10 Completed Trop I [Troponin I] Stat Lab 11/21/24 21:10 Completed Troponin I Q3H Lab 11/22/24 00:15 Completed Troponin I Q3H Lab 11/22/24 03:15 Ordered Blood Culture Stat Micro 11/21/24 22:00 Received VBG [Venous Blood Gas] Stat RT 11/21/24 21:44 Completed ECG Data Tracing #1: Attestation: I reviewed this ECG and interpreted as documented below: ECG Narrative: Sinus tachycardia with frequent PACs. Some motion artifact grade study. No obvious acute STEMI. ECG initial impression date: 11/21/24 ECG initial impression time: 21:12 Tracing #2: Attestation: I reviewed this ECG and interpreted as documented below: ECG Narrative: Normal sinus rhythm with a ventricular rate of 95 bpm. No acute STEMI. Normal axis and intervals ECG initial impression date: 11/21/24 ECG initial impression time: 21:31 MDM Narrative Medical Decision Narrative: In summary, this patient is a 38-year-old male presenting to the Emergency Department for evaluation of sudden onset palpitations, presyncope, shortness of breath. Differential diagnoses considered include but are not limited to ACS, dysrhythmia, PE, valve rupture, valve failure, endocarditis, pericardial effusion. Ruling out the most morbid conditions drove assessment. It should be noted patient's history includes hypertension, mitral valve repair which may or may not be at goal therapy. This complicates all aspects of care by increasing patient's risk for morbidity. I reviewed patient's past medical records and noted previous cardiology in the past. I noted previous Holter monitor showing second-degree AV block, prior Holter showing nonsustained V. tach. He is managed on diltiazem and metoprolol On exam, the patient is very anxious appearing, flushed, and shivering. He has tachycardia on cardiac telemetry that appears to be irregular, looks like sinus tachycardia with PACs. This is confirmed on initial EKG but does have some motion artifact. He is mildly hypertensive upon arrival. Workup included CBC, CMP, troponin, D-dimer, ESR, CRP, blood cultures, TSH, T4, chest x-ray, EKG, bedside echocardiogram. He was given a bolus of IV fluids, 0.5 mg of IV metoprolol for ectopy, and 0.5 mg of IV Ativan for anxiolysis. Echocardiogram is reassuring with no obvious wall motion abnormality, no pericardial effusion. I independently interpreted chest x-ray prior to the radiologist read and noted no acute focal consolidation, pulmonary edema, or other concern. Please see their read for final interpretation. Labs were obtained that demonstrated a negative D-dimer making PE unlikely, negative initial troponin, negative inflammatory markers. Blood culture sent and are pending. He does have a mildly elevated white count and lactic acid, which are nonspecific. They could be related to anxiety/panic. On reassessment, patient had great improvement after administration of interventions above. He is feeling a lot better. repeat EKG is normal with no ectopy. Vitals are normal on cardiac telemetry. I had an interactive discussion with Dr. Meza with cardiology who advised a his concern would be endocarditis versus valve issue, and he would recommend obtaining the blood cultures and admitting the patient overnight for echocardiogram in the morning. The patient, the patient's , and myself all had an interactive discussion about management and they would prefer outpatient follow-up tomorrow with cardiology as opposed to admission overnight. They are agreeable to stay here for second troponin. At 2300, patient was placed in ED observation status pending second troponin to determine whether or not the patient would be appropriate for discharge versus admission. The patient was provided serial reevaluations and cardiac monitoring while awaiting ultimate disposition. Patient care signed out to the oncoming provider, Dr. Garcia, pending second troponin and disposition. <Karey Garcia MD - Last Filed: 11/22/24 00:57> Vital Signs Vital Signs: 11/21/24 21:11 11/21/24 21:31 11/21/24 21:45 Temperature 98.7 F Temperature Source Oral Pulse Rate 95 H 92 H Pulse Rate [Apical] 99 H Respiratory Rate 26 H 18 Blood Pressure 144/80 H Blood Pressure [Right Arm] 163/85 H Blood Pressure Mean [Right Arm] 111 02 Sat by Pulse Oximetry 89 L 100 Oxygen Delivery Method Room Air 11/21/24 22:00 Temperature Temperature Source Pulse Rate 82 Pulse Rate [Apical] Respiratory Rate 16 Blood Pressure 142/84 H Blood Pressure [Right Arm] Blood Pressure Mean [Right Arm] 02 Sat by Pulse Oximetry 100 Oxygen Delivery Method Lab Data Labs: Lab Results 11/21/24 00:00: Troponin I 0.03 11/21/24 20:08: Chlamy pneumoniae PCR Not detected, Adenovirus (PCR) Not detected, B. pertussis DNA (PCR) Not detected, Coronavirus OC43 (PCR) Not detected, Coronavirus HKU1 (PCR) Not detected, Coronavirus 229E (PCR) Not detected, SARS-CoV-2 (PCR) Not detected, Coronavirus NL63 (PCR) Not detected, Human Metapneumovir PCR Not detected, Influenza A (H1) PCR Not detected, Influ A (H1N1/09) PCR Not detected, Influenza A (H3) PCR Not detected, Influenza Type A (PCR) Not detected, Influenza Type B (PCR) Not detected, M. pneumoniae (PCR) Not detected, Parainfluenza 1 (PCR) Not detected, Parainfluenza 2 (PCR) Not detected, Parainfluenza 3 (PCR) Not detected, Parainfluenza 4 (PCR) Not detected, RSV (PCR) Not detected, Entero/Rhino (PCR) Not detected 11/21/24 21:10: WBC 14.0 H, RBC 5.17, Hgb 15.6, Hct 45.2, MCV 87.4, MCH 30.2, MCHC 34.5, RDW 12.4, Plt Count 383, MPV 9.2, Neut % (Auto) 55.4, Lymph % (Auto) 34.9, Falls % (Auto) 7.8, Eos % (Auto) 1.1, Baso % (Auto) 0.4, Neut # (Auto) 7.8, Lymph # (Auto) 4.9 H, Falls # (Auto) 1.1 H, Eos # (Auto) 0.2, Baso # (Auto) 0.1, ESR 1, PT 10.0, INR 0.90, APTT 21.8 L, D-Dimer 0.32, Sodium 135 L, Potassium 4.3, Chloride 105, Carbon Dioxide 18 L, Anion Gap 16.3 H, BUN 29 H, Creatinine 1.10, Estimated Creat Clear 123, Estimated GFR 74, Est GFR ( Amer) 90, G lucose 129 H, Calcium 9.5, Magnesium 2.2, Total Bilirubin 0.5, AST 34, ALT 36, Alkaline Phosphatase 89, Troponin I < 0.01, C-Reactive Protein 0.5, NT-Pro-B Natriuret Pep 35.6, Total Protein 7.7, Albumin 4.8, Globulin 2.9, Albumin/Globulin Ratio 1.7, TSH 4.08, Thyroxine (T4) 8.4 11/21/24 21:44: VBG pH 7.36, VBG pCO2 41.3, VBG pO2 39.5, VBG HCO3 23.0, VBG Total CO2 24.2, VBG O2 Saturation 75.3 H, VBG Base Excess -2.4, VBG Lactic Acid 4.2 H Response Orders (Tests/Meds): ED MEDICATIONS Generic Name Dose Route Start Last Admin Trade Name Freq PRN Reason Stop Dose Admin Sodium Chloride 10 ml 11/21/24 21:41 Sodium Chloride 0.9% 10ml Vial IV 12/21/24 21:40 NEEDED PRN to Dilute Lorazepam inj Discontinued Medications Generic Name Dose Route Start Last Admin Trade Name Freq PRN Reason Stop Dose Admin Lactated Ringer's 1,000 mls @ 999 mls/hr 11/21/24 21:34 11/21/24 21:38 Lactated Ringer's 1000 Ml Bag IV 11/21/24 22:34 999 mls/hr .Q1H1M ONE Administration Lorazepam 0.5 mg 11/21/24 21:41 11/21/24 21:51 Lorazepam 2mg/Ml Vial IV 11/21/24 21:42 0.5 mg ONCE ONE Administration Metoprolol Tartrate 5 mg 11/21/24 21:42 11/21/24 21:51 Metoprolol Tartrate 5mg/5ml Vial IV 11/21/24 21:43 5 mg ONCE ONE Administration ORDERS Category Date Time Status CXR --portable [XR chest portable] Stat Exams 11/21/24 21:14 Completed POCUS Point of Care (ER Only) Stat Exams 11/21/24 21:14 Ordered BNP [NT Pro Brain Natriuretic Pep.] Stat Lab 11/21/24 21:10 Completed CRP [C-Reactive Protein] Stat Lab 11/21/24 21:10 Completed Complete Blood Count Auto Diff Stat Lab 11/21/24 21:10 Completed Comprehensive Metabolic Panel Stat Lab 11/21/24 21:10 Completed D-Dimer Stat Lab 11/21/24 21:10 Completed ESR [Erythrocyte Sedimentation Rate] Stat Lab 11/21/24 21:10 Completed Full Resp Panel w/COVID ([facility]) Routine Lab 11/21/24 20:08 Completed MAG [Magnesium] Stat Lab 11/21/24 21:10 Completed PT INR [Prothrombin Time INR] Stat Lab 11/21/24 21:10 Completed PTT [Activated Partial Thrombo Time] Stat Lab 11/21/24 21:10 Completed T4 (Thyroxine) Stat Lab 11/21/24 21:10 Completed TSH [Thyroid Stimulating Hormone] Stat Lab 11/21/24 21:10 Completed Trop I [Troponin I] Stat Lab 11/21/24 21:10 Completed Troponin I Q3H Lab 11/22/24 00:15 Completed Troponin I Q3H Lab 11/22/24 03:15 Ordered Blood Culture Stat Micro 11/21/24 22:00 Received VBG [Venous Blood Gas] Stat RT 11/21/24 21:44 Completed MDM Narrative Medical Decision Narrative: In summary, this patient is a 38-year-old male presenting to the Emergency Department for evaluation of sudden onset palpitations, presyncope, shortness of breath. Differential diagnoses considered include but are not limited to ACS, dysrhythmia, PE, valve rupture, valve failure, endocarditis, pericardial effusion. Ruling out the most morbid conditions drove assessment. It should be noted patient's history includes hypertension, mitral valve repair which may or may not be at goal therapy. This complicates all aspects of care by increasing patient's risk for morbidity. I reviewed patient's past medical records and noted previous cardiology in the past. I noted previous Holter monitor showing second-degree AV block, prior Holter showing nonsustained V. tach. He is managed on diltiazem and metoprolol On exam, the patient is very anxious appearing, flushed, and shivering. He has tachycardia on cardiac telemetry that appears to be irregular, looks like sinus tachycardia with PACs. This is confirmed on initial EKG but does have some motion artifact. He is mildly hypertensive upon arrival. Workup included CBC, CMP, troponin, D-dimer, ESR, CRP, blood cultures, TSH, T4, chest x-ray, EKG, bedside echocardiogram. He was given a bolus of IV fluids, 0.5 mg of IV metoprolol for ectopy, and 0.5 mg of IV Ativan for anxiolysis. Echocardiogram is reassuring with no obvious wall motion abnormality, no pericardial effusion. I independently interpreted chest x-ray prior to the radiologist read and noted no acute focal consolidation, pulmonary edema, or other concern. Please see their read for final interpretation. Labs were obtained that demonstrated a negative D-dimer making PE unlikely, negative initial troponin, negative inflammatory markers. Blood culture sent and are pending. He does have a mildly elevated white count and lactic acid, which are nonspecific. They could be related to anxiety/panic. On reassessment, patient had great improvement after administration of interventions above. He is feeling a lot better. repeat EKG is normal with no ectopy. Vitals are normal on cardiac telemetry. I had an interactive discussion with Dr. Meza with cardiology who advised a his concern would be endocarditis versus valve issue, and he would recommend obtaining the blood cultures and admitting the patient overnight for echocardiogram in the morning. The patient, the patient's , and myself all had an interactive discussion about management and they would prefer outpatient follow-up tomorrow with cardiology as opposed to admission overnight. They are agreeable to stay here for second troponin. At 2300, patient was placed in ED observation status pending second troponin to determine whether or not the patient would be appropriate for discharge versus admission. The patient was provided serial reevaluations and cardiac monitoring while awaiting ultimate disposition. Patient care signed out to the oncoming provider, Dr. Garcia, pending second troponin and disposition. Garcia: Upon my assumption of care patient is stable and resting comfortably. He is in the ED observation as documented above. I agree with the assessment and plan from Dr. Penaloza. While admission was recommended to the patient, he is refusing at this time adamant about being discharged with close follow-up with Dr. Meza in the morning of 11/22/2024. Patient remained on the general repairer and was reassessed. He has not had any return of symptoms and is resting comfortably at this time. No abnormalities with his vitals, no appreciated arrhythmia on the general repairer. Repeat troponin has slightly up trended now at 0.03. This is still within the limits of normal, however with patient's history and complaint of symptoms earlier, I discussed this again with Dr. Meza. Since patient has not had any recurrence of symptoms and is comfortable at this time, he is still comfortable with the patient being discharged for follow-up between 1030 and 11 AM today, 11/22/2024. Patient and family at bedside would still like to be discharged and are comfortable with this plan. Patient was given instructions on symptomatic management, follow up instructions, and strict return precautions for the emergency department. I impressed upon them specifically very low threshold to return to the ER with any new or concerning symptoms. Patient indicated understanding and was discharged in stable condition. Total time in ED observation: 1 hour 55 minutes
[2024-11-22 00:33] LABS: Troponin I 0.03 ng/ml (0.00-0.034)
[2024-11-22 01:20] VITALS: BP 130/81; PULSE 92; RESP 18; TEMP 37.1; O2SAT 100
== END 2024-11-22 01:02 | disposition home or self-care (01) ==
PROVIDERS: Emergency Provider Emergency Medicine; PCP Family Medicine
DX: R07.9 Chest pain, unspecified (principal); R06.02 Shortness of breath; R00.2 Palpitations; Z98.890 Other specified postprocedural states
CPT/HCPCS: 71045; 80053; 82803; 83735; 83880; 84436; 84443; 84484; 85025; 85378; 85610; 85651; 85730; 86140; 87040; 87633; 93005; 96361; 96374; 99291; J2060; J7120

== ENCOUNTER 2024-11-22 13:32 | Outpatient (CLI) | payer OTHER, SELFPAY ==
--- NOTE | 2024-11-22 13:35 | CA_ITS ---
APPROVED REPORT EXAM: Comprehensive 2D, Doppler, and color-flow Echocardiogram Communications Consultant: Glenys Chavez RT(R) Ht: 6 ft 1 in Wt: 215lbs BSA: 2.22 BP: 111/81 mmHg Indications: GERD, abn EKG, hx of mitral valve repair 2020, aortic ectasia, SUYAPA, palpitations, CP, SOB, family history of HD. 2D Dimensions LVEF (Herrera's) 64.00 % M: 52 - 72 LV Volume 135.60 mL M: 62 - 150 LV Volume Index 61.1 mL/m2 M: 34 - 74 LA Volume 25.50 mL LA Volume Index 11.49 mL/m2 (M/F) 16-34 EF AP4 68.00 % EF AP2 60.2 % EF BP 64.0 % GL Strain -23.6 % M-Mode Dimensions RVDd 3.22 cm (0.9-2.6) LA Diam 1.98 cm (1.9-4.0) LVDd 5.55 cm (3.5-5.7) LVDs 4.06 cm (3.5-5.7) IVSd 0.64 cm (0.6-1.1) PWd 0.93 cm (0.6-1.1) EF (Teich) 51.80% FS 26.80% EDV (Teich) 150.50 mL ESV (Teich) 72.50 mL LV Diastology E Decel Time 227 (160-240 msec) E/A Ratio 1.0 Aortic Valve AO VTI 37.2 (18-25 cm) Mitral Valve MV E Max Monty. 110.0 (40-130 cm/s) MV A Velocity 107.0 (40-130 cm/s) E/A Ratio 1.03 MV PHT 66.0 ms Left Ventricle The left ventricle is normal size. The left ventricular systolic function is normal. The left ventricular ejection fraction is within the normal range. There is normal left ventricular wall thickness. There is normal LV segmental wall motion. The left ventricular diastolic function is normal. LVEF is 55%. Right Ventricle The right ventricle is normal size. The right ventricular systolic function is normal. Atria The left atrium size is normal. The right atrium size is normal. There is no Doppler evidence of interatrial shunt. Aortic Valve The aortic valve opens well. The aortic valve is trileaflet. There is no aortic valvular stenosis. No aortic regurgitation is present. Mitral Valve s/p MV repair. The mitral valve leaflets open well. No evidence of mitral valve stenosis. Mean MV gradient 3 mmHg (HR 85 bpm). Mild mitral regurgitation. Tricuspid Valve The tricuspid valve leaflets are thin and pliable. Trace tricuspid regurgitation. There is insufficient TR jet to estimate RVSP. Pulmonic Valve The pulmonary valve is normal in structure. Mild pulmonic regurgitation. Great Vessels The aortic root is normal in size. The ascending aorta is not well-visualized. IVC is normal in size and collapses >50% with inspiration. Pericardium There is no pericardial effusion. Other Information Study Quality: Adequate Conclusion Normal biventricular systolic function. s/p MV repair. Mild MR. No evidence of LV masses or MV stenosis. Electronically signed by : Carolynn Mancia MD 11/23/2024 12:44:32
== END 2024-11-22 23:59 | disposition home or self-care (01) ==
LOC: RT 13:33
PROVIDERS: PCP Family Medicine; Visit Provider Internal Medicine
DX: I34.0 Nonrheumatic mitral (valve) insufficiency (principal); R00.2 Palpitations; Z98.890 Other specified postprocedural states
CPT/HCPCS: 93270; 93306